=== PATIENT | male | born 1960 | race African-American/Black ===

== ENCOUNTER 2018-01-10 07:24 | Emergency (ER) | payer OTHER ==
[~2018-01-10] VITALS: Ht 172.7 cm; Wt 67.0 kg
[2018-01-10] MEDS ORDERED: ONDANSETRON HCL 4MG/2ML VIAL IV ONE ×2 (07:45→09:45)
[2018-01-10] MEDS ORDERED: MORPHINE SULFATE 4 MG/ML CPJ (NOT FOR IM USE) IV ONE ×2 (07:45→09:45)
[2018-01-10 08:09] LABS: BASOPHILS % 0.7 % (0.0-2.0); EOSINOPHILS % 0.9 % (0.0-5.0); HEMATOCRIT. 44.4 % (42.0-52.0); HEMOGLOBIN. 14.9 g/dL (14.0-18.0); LYMPHOCYTES % 31.1 % (20.0-50.0); MEAN CORPUSCULAR HEMOGLOBIN 31.5 pg (28.0-32.0); MEAN PLATELET VOLUME 8.5 fl (7.4-10.4); MONOCYTES % 9.6 % (2.0-8.0); NEUTROPHILS % 57.7 % (40.0-76.0); PLATELET 330 x1000/uL (130-400); RED BLOOD CELL COUNT 4.72 mill/uL (4.7-6.1); RED CELL DISTRIBUTION WIDTH 13.7 % (11.6-14.6)
[2018-01-10 08:15] LABS: PROTHROMBIN TIME 10.5 sec (9.4-11.6)
[2018-01-10 08:22] LABS: CHLORIDE 106 mEq/L (98-107)
[2018-01-10] MEDS ORDERED: ACETAMINOPHEN 325MG TABLET PO PRN (10:00)
[2018-01-10 10:08] LABS: CLARITY URINE CLEAR (CLEAR); COLOR URINE YELLOW (YELLOW); KETONES URINE NEGATIVE (NEGATIVE); LEUKOCYTE ESTERASE URINE NEGATIVE (NEGATIVE); NITRITE URINE NEGATIVE (NEGATIVE); OCCULT BLOOD URINE NEGATIVE (NEGATIVE); PROTEIN URINE NEGATIVE (NEGATIVE); UROBILINOGEN URINE 0.2 E.U./dL (0.2-1.0)
[2018-01-10] MEDS ORDERED: MORPHINE SULFATE 2 MG/ML CPJ (NOT FOR IM USE) IV PRN (10:30)
[2018-01-10] MEDS ORDERED: NICOTINE 14MG PATCH TD SCH (10:30)
[2018-01-10] MEDS ORDERED: DEXT 5%/0.45% NACL 1000ML 1,000 ML IV SCH (10:30)
[2018-01-10] MEDS ORDERED: ONDANSETRON HCL 4MG/2ML VIAL IV PRN (10:30)
[2018-01-10] MEDS ORDERED: HYDRALAZINE 20MG/ML VIAL IV PRN (10:45)
[2018-01-10] MEDS ORDERED: LORAZEPAM 2MG/ML CPJ IV ONE (13:00)
[2018-01-10 14:16] VITALS: BP 119/75
== END 2018-01-10 14:24 | disposition home or self-care (01) ==
LOC: ER 07:44 → EDBEDREQ 09:52 → CANBEDREQ 13:23 → ER 14:24
DX: K40.30 Unilateral inguinal hernia, with obstruction, without gangrene, not specified as recurrent (principal); Q53.10 Unspecified undescended testicle, unilateral; F17.210 Nicotine dependence, cigarettes, uncomplicated
CPT/HCPCS: 36415; 74176; 80053; 81003; 85025; 85610; 85730; 96374; 96375; 99285; J2060; J2270; J2405; Z7610